=== PATIENT | female | born 1995 ===

== ENCOUNTER 2018-12-26 20:20 | Inpatient (IN) | payer OTHER ==
[~2018-12-26] VITALS: Ht 167.6 cm; Wt 81.6 kg
[2018-12-26 22:24] VITALS: BP 116/69
[2018-12-26] MEDS ORDERED: RINGERS SOLUTION,LACTATED 1,000 ML IV SCH (22:45)
[2018-12-26] MEDS ORDERED: NIFEdipine 10 MG CAPSULE PO ONE (22:45)
[2018-12-27] MEDS ORDERED: RINGERS SOLUTION,LACTATED 1,000 ML IV SCH ×2 (07:40→07:41)
[2018-12-27] MEDS ORDERED: RINGERS SOLUTION,LACTATED 1,000 ML IV PRN (07:41)
[2018-12-27] MEDS ORDERED: OXYTOCIN 30 UNITS/LACT RINGERS 500 ML IV ONE (07:41)
[2018-12-27] MEDS ORDERED: CITRIC ACID/SODIUM CITRATE 30 ML SOLUTION UDCUP PO PRN (07:45)
[2018-12-27] MEDS ORDERED: METHYLERGONOVINE MALEATE 0.2 MG/ML VIAL IM PRN (07:45)
[2018-12-27] MEDS ORDERED: METOCLOPRAMIDE HCL 5 MG/ML 2 ML VIAL IVP PRN (07:45)
[2018-12-27] MEDS ORDERED: CARBOPROST TROMETHAMINE 250 MCG/ML AMP IM PRN (07:45)
[2018-12-27] MEDS ORDERED: LIDOCAINE/PF 1% 30 ML VIAL INJ PRN (07:45)
[2018-12-27] MEDS ORDERED: MISOPROSTOL 50 MCG TABLET PO SCH (07:45)
[2018-12-27] MEDS ORDERED: PREN-217 PO (07:46)
[2018-12-27] MEDS ORDERED: AMPICILLIN SODIUM 2 GM/NS 100 ML IV ONE (08:00)
[2018-12-27] MEDS ORDERED: OXYGEN THERAPY IH SCH (08:00)
[2018-12-27 08:07] VITALS: BP 111/67
[2018-12-27 08:35] LABS: BASOPHILS % (AUTO) 0.4 % (0.0-2.0); HEMATOCRIT 38.7 % (36-46); HEMOGLOBIN 12.9 g/dL (12.0-16.0); LYMPHOCYTES # (AUTO) 1.9 K/uL (1.0-4.8); LYMPHOCYTES % (AUTO) 27.3 % (22.0-44.0); MEAN CORPUSCULAR HEMOGLOBIN 30.6 pg (26.0-34.0); MEAN CORPUSCULAR HGB CONC 33.3 G/dL (31.0-37.0); MEAN CORPUSCULAR VOLUME 92 fL (80-100); MONOCYTES # (AUTO) 0.7 K/uL (0.1-1.0); MONOCYTES % (AUTO) 10.1 % (2.0-9.0); NEUTROPHILS # (AUTO) 4.2 K/uL (1.8-7.7); NEUTROPHILS % (AUTO) 60.2 % (40.0-70.0); PLATELET COUNT (AUTO)-OB 250 K/uL (150-450); RED BLOOD CELL COUNT(AUTO) 4.21 MIL/uL (4.00-5.20); RED CELL DISTRIBUTION WIDTH 13.3 % (11.5-14.5)
[2018-12-27] MEDS ORDERED: ROPIVACAINE HCL/PF 0.2% 100 ML ED ONE (11:52)
[2018-12-27] MEDS ORDERED: ROPIVACAINE HCL/PF 0.2% 100 ML ED PRN (12:08)
[2018-12-27] MEDS ORDERED: DiphenhydrAMINE HCL 50 MG/ML VIAL IVP PRN (12:15)
[2018-12-27] MEDS ORDERED: ONDANSETRON HCL 4 MG/2 ML VIAL IVP PRN (12:15)
[2018-12-27] MEDS ORDERED: NALBUPHINE HCL 10 MG/ML VIAL IVP PRN (12:15)
[2018-12-27] MEDS: AMPICILLIN SODIUM 1 GM/NS 50 ML IV SCH ×2 (12:28→16:46)
[2018-12-27] MEDS ORDERED: OXYTOCIN 30 UNITS/LACT RINGERS 500 ML IV PRN (12:51)
[2018-12-27 16:28] LABS: RUBELLA SCREEN (IGG) IMMUNE (IMMUNE)
[2018-12-27] MEDS ORDERED: ACETAMINOPHEN/CODEINE 300-30 MG TABLET PO PRN ×4 (18:30→19:00)
[2018-12-27] MEDS ORDERED: LANOLIN 7 GM OINTMENT TP PRN ×2 (18:30→19:00)
[2018-12-27] MEDS ORDERED: BENZOCAINE 20%/MENTHOL 56 GM SPRAY CANISTER TP PRN ×2 (18:30→19:00)
[2018-12-27] MEDS ORDERED: GLYCERIN/WITCH HAZEL LEAF 40 PADS JAR TP PRN ×2 (18:30→19:00)
[2018-12-27] MEDS ORDERED: MAGNESIUM HYDROXIDE SUSPENSION 30 ML UDCUP PO SCH (21:00)
[2018-12-27] MEDS ORDERED: IBUPROFEN 800 MG TABLET PO SCH (21:00)
[2018-12-27] MEDS: MAGNESIUM HYDROXIDE SUSPENSION 30 ML UDCUP PO SCH (21:23)
[2018-12-27] MEDS: IBUPROFEN 800 MG TABLET PO SCH (21:24)
[2018-12-28] MEDS: IBUPROFEN 800 MG TABLET PO SCH ×4 (03:12→21:16)
[2018-12-28] MEDS: MAGNESIUM HYDROXIDE SUSPENSION 30 ML UDCUP PO SCH ×2 (08:49→21:16)
[2018-12-28] MEDS ORDERED: ACET-2247 PO (09:17)
[2018-12-28] MEDS ORDERED: IBUP-2070 PO (09:18)
[2018-12-28] MEDS ORDERED: DSS100 PO (09:19)
[2018-12-29] MEDS: IBUPROFEN 800 MG TABLET PO SCH (04:15)
== END 2018-12-29 10:30 | disposition home or self-care (01) | DRG 560 ==
LOC: OBSVTOIN 20:20 → 4S 20:20
PROVIDERS: ADMIT Obstetrics & Gynecology; ATTEND Obstetrics & Gynecology
PROC: 10E0XZZ Delivery of Products of Conception, External Approach (ICD-10-PCS; principal; 2018-12-27)
PROC: 3E0R3BZ Introduction of Anesthetic Agent into Spinal Canal, Percutaneous Approach (ICD-10-PCS; 2018-12-27)
PROC: 00HU33Z Insertion of Infusion Device into Spinal Canal, Percutaneous Approach (ICD-10-PCS; 2018-12-27)
DX: O80 Encounter for full-term uncomplicated delivery (principal); Z37.0 Single live birth; Z3A.38 38 weeks gestation of pregnancy
CPT/HCPCS: 80307; 86592; 86762; 86850; 86900; 86901; 87340; J0290; J2210; J2590; J2795; J7120